=== PATIENT | male | born 1955 | race Caucasian/White ===

== ENCOUNTER 2024-04-21 22:34 | Emergency (ER) | payer MEDICARE, OTHER ==
[2024-04-21 23:09] LABS: BLOOD UREA NITROGEN,BUN 8 mg/dL (7-18); BUN/CREATININE RATIO 7.3 (9-20); CALCIUM 8.3 mg/dL (8.6-10.2); CARBON DIOXIDE,CO2 33 mmol/L (21-32); CHLORIDE,CL 95 mmol/L (100-110); CREATININE 1.1 mg/dL (0.70-1.30); ESTIMATED GFR 72 mL/min (>60); GLUCOSE RANDOM 101 mg/dL (80-116); SODIUM,NA 137 mmol/L (135-145)
[2024-04-21] MEDS: Magnesium Sulfate/Water 4 GM in Premix Bag 1 BAG IV ONE (23:39)
[2024-04-21] MEDS: Potassium Chloride 20 MEQ Tab.ER PO ONE (23:40)
[2024-04-22 03:29] VITALS: BP 137/91; PULSE 72
== END 2024-04-22 03:25 | disposition home or self-care (01) ==
LOC: FB.ED 22:34
DX: E83.42 Hypomagnesemia (principal); I10 Essential (primary) hypertension; Z79.899 Other long term (current) drug therapy; Z91.018 Allergy to other foods
CPT/HCPCS: 36415; 80048; 80307; 83735; 96365; 96366; 99283; 99284; A9270; J3475